=== PATIENT | female | born 1985 | race Two or more races ===

== ENCOUNTER 2024-07-02 08:00 | Outpatient (RCR) | payer MEDICAID, SELFPAY ==
--- NOTE | 2024-06-04 15:55 | PT.OIERPT ---
PT OP Initial Eval Patient Information Outpatient Physical Therapy Treatment Date: 06/04/24 Visit Reasons: left wrist pain Medical Diagnosis: M65.4; Left Wrist Pain Treatment Dx #1: Left Hand Pain Treatment Dx #2: Left Hand Weakness Start of Care: 06/04/24 Date of Onset: 1 year ago Smoking Status Smoking Status: Never smoker Initial Assessment Subjective: Pt is a 39 y/o female reports of chronic left wrist pain (10/11) after she fell on it ~ 1 year ago. Xray negative no MRI has been done. Pt has limitation with gripping, lifting, chores, self care, cooking, cleaning, and work duties. 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 Objective: Left Wrist AROM: all motions are WNL except pain with ulnar deviation Left Wrist MMTs: grossly 3+/5 Inspector Clip On Sunglasses Strength L: 43 lbs R: 60 lbs Wright Pinch L: 11 lbs R: 14 lbs Special Test (+) ena Palpation: TTP abductor pollicis longus and extensor pollicis brevis tendons Assessment: Pt demonstrate left wrist pain and weakness consistent with dequervain tenosynovitis leading to difficulty with ADLs. 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
--- NOTE | 2024-06-11 15:36 | PT.ODAYNRPT ---
PT Outpatient Daily Note OP Daily Note Outpatient Physical Therapy Treatment Date: 06/11/24 Visit Reasons: left wrist pain Subjective: Pt reports L wrist and thumb pain. Objective: Please see flow sheet for ther ex list. Assessment: Interventions completed with minimal pain and TTP. Plan: Please see flow sheet for ther ex list. Length of Time (minutes) of Treatment: 30 Minutes Procedure Charges Therapeutic Exercise 30 minutes: Yes
--- NOTE | 2024-06-13 15:41 | PT.ODAYNRPT ---
PT Outpatient Daily Note OP Daily Note Outpatient Physical Therapy Treatment Date: 06/13/24 Visit Reasons: left wrist pain Subjective: Pt's thumb been feeling better. Pt does not have any concerns to report. Objective: Please see flow chart for list of ther ex performed Assessment: STM decrease thumb pain. Pt progressing with resistance. Plan: Continue with PT Length of Time (minutes) of Treatment: 30 Minutes Procedure Charges Therapeutic Exercise 30 minutes: Yes
--- NOTE | 2024-06-18 15:51 | PT.ODAYNRPT ---
PT Outpatient Daily Note OP Daily Note Outpatient Physical Therapy Treatment Date: 06/18/24 Visit Reasons: left wrist pain Subjective: Pt's hand and thumb is better no concerns to report. Pt continues to use the thumb for work. Objective: Please see flow chart for list of ther ex performed Assessment: decrease pain and able to tolerate increase in reps with all exercises Plan: Continue with PT Length of Time (minutes) of Treatment: 30 Minutes Procedure Charges Therapeutic Exercise 30 minutes: Yes
--- NOTE | 2024-06-21 16:08 | PT.ODAYNRPT ---
PT Outpatient Daily Note OP Daily Note Outpatient Physical Therapy Treatment Date: 06/21/24 Visit Reasons: left wrist pain Subjective: Pt reports L wrist is doing better, notices it is less sensitive and pain has reduced. Objective: Please see flow sheet for ther ex list. Assessment: Decrease c/o pain with interventions assigned indicating progress. Plan: Continue with POC. Length of Time (minutes) of Treatment: 30 Minutes Procedure Charges Therapeutic Exercise 30 minutes: Yes
--- NOTE | 2024-06-26 08:57 | PTNOTE_ITS ---
PT Outpatient Daily Note OP Daily Note Outpatient Physical Therapy Treatment Date: 06/26/24 Visit Reasons: left wrist pain Subjective: Pt's thumb and hand is better. Pt continues to work. 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 Plan: Continue with PT Length of Time (minutes) of Treatment: 30 Minutes Procedure Charges Therapeutic Exercise 30 minutes: Yes
--- NOTE | 2024-06-29 09:00 | PT.ODAYNRPT ---
PT Outpatient Daily Note OP Daily Note Outpatient Physical Therapy Treatment Date: 06/29/24 Visit Reasons: left wrist pain Subjective: Pt's hand and thumb feels better. No new concerns to report. Objective: Please see flow chart for list of ther ex performed Assessment: progressing with hand resistance exercises with less pain reported Plan: Continue with PT Length of Time (minutes) of Treatment: 30 Minutes Procedure Charges Therapeutic Exercise 30 minutes: Yes
--- NOTE | 2024-07-02 08:57 | PT.ODAYNRPT ---
PT Outpatient Daily Note OP Daily Note Outpatient Physical Therapy Treatment Date: 07/02/24 Visit Reasons: left wrist pain Subjective: Pt does not have any new concerns. 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 Objective: Please see flow chart for list of ther ex performed Assessment: tolerate exercises with minimal pain Plan: Continue with PT Length of Time (minutes) of Treatment: 30 Minutes Procedure Charges Therapeutic Exercise 30 minutes: Yes
== END 2024-07-03 23:59 | disposition home or self-care (01) ==
LOC: CPTX 08:00
DX: M25.532 Pain in left wrist (principal); M79.642 Pain in left hand; R53.1 Weakness; G89.29 Other chronic pain
CPT/HCPCS: 97110; 97162

== ENCOUNTER 2024-07-16 15:30 | Outpatient (RCR) | payer MEDICAID, SELFPAY ==
--- NOTE | 2024-07-06 15:27 | PT.ODAYNRPT ---
PT Outpatient Daily Note OP Daily Note Outpatient Physical Therapy Treatment Date: 07/06/24 Visit Reasons: Left wrist pain Subjective: Pt's hand and thumb is better. Pt continues to with less limitation. Objective: Please see flow chart for list of ther ex performed Assessment: progressing with hand exercises with less pain reported. Plan: Continue with PT Length of Time (minutes) of Treatment: 30 Minutes Procedure Charges Therapeutic Exercise 30 minutes: Yes
--- NOTE | 2024-07-10 15:29 | PT.ODAYNRPT ---
PT Outpatient Daily Note OP Daily Note Outpatient Physical Therapy Treatment Date: 07/10/24 Visit Reasons: Left wrist pain Subjective: Pt's hand is better and notice improved strength. Pt denies of minimal limitation with work. 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
--- NOTE | 2024-07-12 15:57 | PT.ODAYNRPT ---
PT Outpatient Daily Note OP Daily Note Outpatient Physical Therapy Treatment Date: 07/12/24 Visit Reasons: Left wrist pain Subjective: Pt reports L wrist is doing a lot better. Pt denies difficulty or pain with performance of ADLs. Objective: Please see flow sheet for the claude list. Assessment: Pt demonstrates good tolerance with functional strengthening in clinic. Plan: Pt has one visit remaining. Length of Time (minutes) of Treatment: 30 Minutes Procedure Charges Therapeutic Exercise 30 minutes: Yes
--- NOTE | 2024-07-16 15:53 | PTNOTE_ITS ---
PT OP Progress/Discharge Note Date of Service: 07/16/24 Progress Note/DC Note Progress Note/Discharge Note: DC Note Patient Information Visit Reasons: Left wrist pain Medical Diagnosis: M65.4 Treatment Dx #1: Left Hand Pain Service Continue Service or Discharge: Discharge Discharge Date: 07/16/24 Status Subjective: Pt's thumb is better and denies of hand pain. Pt has been able to resume ADLs, chores, self care, cooking, and work duties. 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 Pt has met all set goals in therapy and will no longer benefit from physical therapy. Pt was instructed on HEP last session and educated to continue exercises to maintain overall mobility. Pt performed all exercises safely, thank you for your referrals. Plan: D/C home with HEP and follow up with MD AVILA Procedure Charges Therapeutic Exercise 30 minutes: Yes
== END 2024-08-03 23:59 | disposition home or self-care (01) ==
LOC: CPTX 15:30
DX: M79.642 Pain in left hand (principal); M25.532 Pain in left wrist; R53.1 Weakness; S69.92XD Unspecified injury of left wrist, hand and finger(s), subsequent encounter; W19.XXXD Unspecified fall, subsequent encounter; M65.4 Radial styloid tenosynovitis [de Quervain]
CPT/HCPCS: 97110

== ENCOUNTER → 2024-08-14 | Outpatient (CLI) | payer MEDICAID, SELFPAY ==
--- NOTE | 2024-08-14 15:37 | XR_ITS ---
Examination: Thoracic spine 3 views Technique one AP lateral coned lateral upper dorsal spine 3 views Exam date and time: August 14, 2024 at 1623 hrs. Indications: Upper back pain beginning one year ago Findings: Mild osteopenia Thoracic dextroscoliosis 8 degrees No thoracic fracture Minimal thoracic abscess No significant arthritic change Impression: No fracture Minimal thoracic spondylosis
== END | disposition home or self-care (01) ==
LOC: CDIM 15:26
PROVIDERS: Referring Provider Physician Assistant; Visit Provider Physician Assistant
DX: M47.814 Spondylosis without myelopathy or radiculopathy, thoracic region (principal)
CPT/HCPCS: 72072

== ENCOUNTER → 2024-09-05 | Outpatient (CLI) | payer MEDICAID, SELFPAY ==
--- NOTE | 2024-09-05 15:41 | XR_ITS ---
Examination: Lumbar spine 3 views Technique one AP lateral coned lateral lower lumbar spine 3 views Exam date and time: September 05, 2024 at 1600 hours INDICATIONS: Low back pain beginning one year ago radiating down both legs. FINDINGS: Satisfactory alignment lumbar vertebral bodies. No lumbar fracture Mild disc narrowing L5-S1 IMPRESSION: Mild disc narrowing L5-S1
== END | disposition home or self-care (01) ==
PROVIDERS: PCP Student in an Organized Health Care Education/Training Program; Referring Provider Student in an Organized Health Care Education/Training Program; Visit Provider Student in an Organized Health Care Education/Training Program
DX: M48.07 Spinal stenosis, lumbosacral region (principal)
CPT/HCPCS: 72100

== ENCOUNTER 2025-04-30 15:11 | Emergency (ER) | payer MEDICAID, SELFPAY ==
[2025-04-30 15:25] VITALS: BP 130/79; PULSE 66; RESP 16; TEMP 36.8; O2SAT 99; BMI 36.9
--- NOTE | 2025-04-30 15:40 | XR_ITS ---
Examination: Complete OB ultrasound, less than 14 weeks, transabdominal Date and time of exam: April 30, 2025, 1543 hours INDICATIONS: Onset vaginal bleeding beginning 1 week ago Technique: Obstetrical ultrasound images less than 14 weeks performed via transabdominal imaging Findings: Uterus 9.2 cm gestational sac 3.1 cm corresponds to 8 weeks 2 days gestational age No pole, no cardiac activity Ovaries obscured by bowel gas IMPRESSION: Findings most consistent with embryonic demise, consider short-term follow-up transvaginal pelvic sonography
[2025-04-30 16:38] LABS: Collection Type, Urine Clean Catch
[2025-04-30 16:38] LABS: Basophils # (Auto) 0.0 Thou/mm3 (0.0-0.2); Basophils % (Auto) 0 % (0-2.5); Eosinophils # (Auto) 0.1 Thou/mm3 (0.0-0.5); Eosinophils % (Auto) 1 % (0-10); Hematocrit 46.1 % (36.0-46.0); Hemoglobin 15.4 g/dL (12.0-16.0); Immature Granulocytes Auto 0.01 Thou/mm3 (0.00-0.00); Lymphocytes # (Auto) 3.2 Thou/mm3 (1.0-4.8); Lymphocytes % (Auto) 39 % (10-50); Mean Corpuscular HGB Conc 33.4 g/dl (31.0-37.0); Mean Corpuscular Hemoglobin 28.1 pg (25.0-35.0); Mean Corpuscular Volume 84 fL (80-100); Monocytes # (Auto) 0.3 Thou/mm3 (0.0-0.8); Monocytes % (Auto) 3 % (0-12); Neutrophils # (Auto) 4.6 Thou/mm3 (1.8-7.7); Neutrophils % (Auto) 56 % (37-80); Nucleated Red Blood Cell # 0.00 Thou/mm3 (0.00-0.00); Nucleated Red Blood Cell % 0 /100 WBC (0); Platelet Count 216 Thou/mm3 (140-440); RDW Standard Deviation 40.4 fL (36.4-46.3); Red Blood Count 5.49 Miln/mm3 (4.00-5.20); White Blood Count 8.1 Thou/mm3 (3.6-11.0)
--- NOTE | 2025-04-30 16:47 | PD.EDRME ---
Rapid Medical Screening Exam [facility] Arrival date/time: 04/30/25 15:11 40-year-old female with no known medical history presents to the emergency room with a chief complaint of vaginal spotting. Patient states the first episode of vaginal spotting was a week ago which stopped and then today she began having it once again. Patient is a G6, P5. I have greeted and performed a focused initial assessment of this patient. A comprehensive ED assessment and evaluation of the patient, analysis of all test results, and completion of the medical decision making process will be conducted by additional ED providers. Chief Complaint: Vaginal Bleeding Time Seen by Provider: 04/30/25 15:20 Vital signs: Vital Signs Temperature 98.3 F 04/30/25 15:25 Pulse Rate 66 04/30/25 15:25 Respiratory Rate 16 04/30/25 15:25 Blood Pressure 130/79 04/30/25 15:25 Pulse Oximetry (%) 99 04/30/25 15:25 Oxygen Delivery Method Room Air 04/30/25 15:25 Vital signs reviewed by provider: Yes Exam: Patient has a soft nontender abdomen Clear bilateral lung sounds Clinical Impression: Threatened /vaginal bleeding/subchorionic hemorrhage/spontaneous
[2025-04-30 17:00] LABS: Bilirubin,Urine Negative (Negative); Blood,Urine 2+ (Negative); Clarity,Urine Clear (Clear/Hazy); Color,Urine Lt-Yellow (Lt Yel-Yel); Glucose, Urine 4+ (Negative); Ketones,Urine 1+ (Negative); Leukocyte Esterase,Urine Negative (Negative); Nitrite,Urine Negative (Negative); PH,Urine 6.0 (5.0-7.0); Protein,Urine Negative (Neg - Trace); RBC,Urine 6 /hpf (0-3); Specific Gravity,Urine 1.029 (1.001-1.035); Squamous Epithelial Cell,Urine 1 /hpf (0-5); Urobilinogen,Urine Negative mg/dL (0.0-1.0); WBC,Urine 2 /hpf (0-5)
[2025-04-30 17:03] LABS: Alanine Aminotransferase 24 U/L (10-49); Albumin, Serum 5.0 gm/dL (3.5-5.0); Albumin/Globulin Ratio 2.6 (1.2-2.2); Alkaline Phosphatase 99 U/L (46-116); Anion Gap 12 (7-16); Aspartate Amino Transferase 20 U/L (0-34); BUN/Creatinine Ratio 10 Ratio (12-20); Bilirubin,Total 1.1 mg/dL (0.3-1.2); Blood Urea Nitrogen 8 mg/dL (9-23); Calcium 9.8 mg/dL (8.3-10.6); Calcium (Corrected) 9.8 mg/dL (8.5-10.1); Carbon Dioxide 23.6 mMol/L (20.0-31.0); Chloride 103 mMol/L (98-107); Creatinine (Component) 0.8 mg/dL (0.6-1.3); Estimated Creatinine Clearance 87.2 mL/min (>60); Globulin 1.9 gm/dL (2.3-3.5); Glucose 274 mg/dL (74-106); Osmolality,Calculated 285 (275-295); Potassium 4.1 mMol/L (3.4-5.1); Sodium 139 mMol/L (136-145); Total Protein 6.9 gm/dL (5.7-8.2); eGFR > 60 See Note
[2025-04-30 17:17] LABS: Beta HCG,Quantitative 4728 mIU/mL (<5.0)
--- NOTE | 2025-04-30 19:36 | PD.EDADULT ---
ED General RME/HPI General Chief complaint: Vaginal Bleeding Stated complaint: VAGINAL SPOTTING; PREG 8WKS? 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 Patient denies fever chills chest pain shortness of breath or difficulty breathing. RME / HPI RME / HPI narrative: 04/30/25 15:11 40-year-old female with no known medical history presents to the emergency room with a chief complaint of vaginal spotting. Patient states the first episode of vaginal spotting was a week ago which stopped and then today she began having it once again. Patient is a G6, P5. I have greeted and performed a focused initial assessment of this patient. A comprehensive ED assessment and evaluation of the patient, analysis of all test results, and completion of the medical decision making process will be conducted by additional ED providers. Exam: Patient has a soft nontender abdomen Clear bilateral lung sounds Impression: Threatened /vaginal bleeding/subchorionic hemorrhage/spontaneous Related Data Home Medications ?Medication ?Instructions ?Recorded ?Confirmed vits no.124-ferrous fum 1 tab PO QDAY 09/15/23 09/15/23 27 mg iron-folic acid 800 mcg tablet ( Vitamin) Previous Rx's ?Medication ?Instructions ?Recorded hydrocodone 5 mg-acetaminophen 325 1 tab PO Q6H PRN pain #20 tabs 09/18/23 mg tablet empagliflozin 10 mg tablet 10 mg PO QDAY #30 tabs 09/20/23 (Jardiance) metformin 500 mg tablet 750 mg (1.5 x 500 mg) PO HS #30 09/20/23 tabs semaglutide 3 mg tablet (Rybelsus) 3 mg PO QDAY 30 days #30 tabs 09/20/23 Allergies Allergy/AdvReac Type Severity Reaction Status Date / Time No Known Allergies Allergy Verified 04/30/25 15:13 Review of Systems Review of Systems Narrative Review of Systems: GEN: No fever, no chills, no weight loss EYES: No discharge, no visual changes, no pain HEENT: No ear pain, no congestion, no sore throat PULM: No shortness of breath, no cough, no congestion CV: No chest pain, no dyspnea on exertion, no palpitations GI: No nausea, no vomiting, no diarrhea, no pain, no constipation : No frequency, no urgency, no dysuria MUSC/SKEL: No joint pain, no back pain SKIN: No rash PSYCH: No hallucinations, no depression HEME/LYMPH: No easy bleeding or bruising tendencies NEURO: No weakness, no headache Past Medical History Past Medical History NEUROLOGIC: Negative Neurological Disorders or Seizures CARDIAC: Negative Cardiac Disorders or Congestive Heart Failure RESPIRATORY: Negative Chronic Obstructive Pulmonary Disease (COPD) GASTROINTESTINAL: Negative Gastrointestinal Disorders or Hepatitis GENITOURINARY: Negative Genitourinary Disorders or Renal Disease REPRODUCTIVE: Positive Previous Pregnancies (X4); Negative Endometriosis, Pelvic Inflammatory Disease, Syphilis or Uterine Prolapse MUSCULOSKELETAL: Negative Musculoskeletal Disorders ENDOCRINE: Positive Endocrine Disorders; Negative Diabetes Mellitus Type 1 or Diabetes Mellitus Type 2 HEMATOLOGIC: Negative Blood Disorders OTHER HISTORY: Positive Chicken Pox; Negative Hospitalization, Autoimmune Disease, Shingles, Falls, Blood Transfusions, Blood Transfusion Reaction, Anesthesia Reactions, Organ Transplant, Chemotherapy, Radiation Therapy, MRSA, Measles, Mumps or Cancer Family History FAMILY HISTORY: Positive Family Surgery (MOTHER,BROTHER); Negative Family Psychiatric Problems, Family Respiratory Disorders, Family Cardiac Disorders, Family Gastrointestinal Problems, Family Cancer or Family Anesthesia Reaction Surgical History SURGICAL: Negative Cardiac Surgery, Endocrine Surgery, Ear Surgery, Abdominal Surgery, Nephrectomy, Joint Replacement, Neurologic Surgery, Mastectomy, Vasectomy or Organ Transplant Social History SMOKING STATUS: Never smoker ED Exam Narrative Physical exam: [General: Not in any acute distress Head normocephalic HEENT: Within acceptable limits Neck is supple nontender Chest equal chest rise nontender to palpation Respiratory: Clear to auscultation no wheezes crackles or rubs CV: Rate rhythm is regular no murmurs rubs or clicks Abdomen is soft nontender no masses positive bowel sounds all 4 quadrants Back: No CVA tenderness no spinous process tenderness from cervical spine thoracic and lumbar spine Skin: Intact no petechiae rash induration ulceration or crepitus Extremities: Moving all extremity against resistance cap refill less than 2 seconds neurosensory intact Neuro: Awake alert oriented x3 Glascow coma 15 no focal deficits] Course Course Course Narrative: Summative demise Quality Measures none Orders Category Date Time Status US OB <= 14 weeks fetus Stat Exams 04/30/25 15:40 Completed Beta HCG,Quantitative Stat Lab 04/30/25 16:02 Completed CBC Stat Lab 04/30/25 16:02 Completed CMP [Comprehensive Metabolic Panel] Stat Lab 04/30/25 16:02 Completed RHOGAM [Rho(D) Immune Globulin] Stat Lab 04/30/25 16:02 Results Type and Screen Stat Lab 04/30/25 16:02 Results UA [Urinalysis] Stat Lab 04/30/25 16:20 Completed Vital Signs Vital signs: Vital Signs Temperature 98.3 F 04/30/25 15:25 Pulse Rate 66 04/30/25 15:25 Respiratory Rate 16 04/30/25 15:25 Blood Pressure 130/79 04/30/25 15:25 Pulse Oximetry (%) 99 04/30/25 15:25 Oxygen Delivery Method Room Air 04/30/25 15:25 Discharge Plan Plan Patient Disposition: HOME (Self Care) Patient condition on transfer: Stable Prescriptions/Referrals Prescriptions/Med Rec: No Action Vitamin 27 mg iron- 800 mcg Tablet 1 tab PO QDAY hydrocodone-acetaminophen 5-325 mg tablet 1 tab PO Q6H MDD 4 PRN (Reason: pain) Qty: 20 0RF metformin 500 mg Tablet 750 mg PO HS Qty: 30 2RF Rybelsus 3 mg tablet 3 mg PO QDAY 30 Days Qty: 30 2RF Jardiance 10 mg tablet 10 mg PO QDAY Qty: 30 2RF Referrals: Everett Candelaria PA-C [Primary Care Provider, Emergency Medicine] - In 1 week Problem List Clinical Impression: demise Patient/Caregiver Discharge Instructions Other Activity Instructions:: Quantitative hCG of 4 728. Follow-up with your primary care doctor or [facility] RO[facility] for repeat ultrasound and quantitative hCG in the next 4 to 5 days. If there is heavy bleeding or cramping with large clots return to the emergency room for reevaluation. Education Materials: ED Miscarriage, Incomplete Print Language: Lebanese Stand Alone Forms: Yaneth Award Info., Work/School Release, Patient Portal Info Letter JUSTINA/KESHAV Supervising Physician CATHERINE Supervising Physician: Surinder Rock ENP [facility] Clinical Information Provided by: patient Medical Records reviewed [facility] Meds/Rx considered, not ordered None Labs/Rad/Tests considered, not ordered None Chronic Illness/Social Conditions which may negatively complicate care or outcome(s)-explain: None or not applicable Explain: G6, P5 EKG EKG not done Labs Labs: interpreted by me Lab(s) Interpretation(s): CBC shows no leukocytosis no anemia thrombocytopenia CMP shows glucose of 274 no other electrolyte imbalances renal impairment transaminitis or T. bili elevation. Urine shows 4+ glucose 1+ ketones 2+ blood 6 RBCs no bacteria. ABO Rh is O-. Quantitative hCG at 4728 Imaging Imaging interpretation: interpreted by me Imaging Interpretation(s): Ultrasound shows gestational sac equivalent to 8 weeks and 2 days with no cardiac activity or pole. Indicated demise. Medication Administration(s) none Diagnosis Differential Diagnosis ED Complaint MDM: Ectopic, IUP, miscarriage
[2025-04-30 20:08] VITALS: BP 125/85; PULSE 78; RESP 18; TEMP 37.2
[2025-04-30 20:25] VITALS: BP 108/72; PULSE 74; RESP 16; TEMP 37.2; O2SAT 98
== END 2025-04-30 20:29 | disposition home or self-care (01) ==
PROVIDERS: Nurse Practitioner Family; Emergency Provider Family Medicine; PCP Physician Assistant
DX: O03.4 Incomplete spontaneous abortion without complication (principal)
CPT/HCPCS: 36415; 76801; 80053; 81001; 84702; 85025; 86850; 86900; 86901; 99282; J2790

== ENCOUNTER 2025-05-03 18:41 | Inpatient (IN) | payer MEDICAID, SELFPAY ==
[2025-05-03 18:47] VITALS: BP 124/78; PULSE 75; RESP 18; TEMP 37.1; O2SAT 97
[2025-05-03 19:06] VITALS: BMI 36.9
--- NOTE | 2025-05-03 19:19 | XR_ITS ---
Examination: Transvaginal ultrasound of the pelvis, complete Technique: Transvaginal sonographic images pelvis performed using yanez scale imaging Exam date and time: May 03, 2025, 0757 hours INDICATIONS: Onset vaginal bleeding and pelvic cramping today FINDINGS: Uterus 9.8 cm no uterine mass or intrauterine gestation Endometrial stripe 2.7 cm Right ovary 2.3 cm arterial flow Left ovary 2.7 cm arterial flow No fluid in the cul-de-sac IMPRESSION: No uterine mass or intrauterine gestation.
[2025-05-03 19:55] LABS: Collection Type, Urine Voided
[2025-05-03 20:00] LABS: Basophils # (Auto) 0.0 Thou/mm3 (0.0-0.2); Basophils % (Auto) 0 % (0-2.5); Eosinophils # (Auto) 0.1 Thou/mm3 (0.0-0.5); Eosinophils % (Auto) 1 % (0-10); Hematocrit 46.5 % (36.0-46.0); Hemoglobin 15.7 g/dL (12.0-16.0); Immature Granulocytes Auto 0.02 Thou/mm3 (0.00-0.00); Lymphocytes # (Auto) 3.7 Thou/mm3 (1.0-4.8); Lymphocytes % (Auto) 38 % (10-50); Mean Corpuscular HGB Conc 33.8 g/dl (31.0-37.0); Mean Corpuscular Hemoglobin 28.0 pg (25.0-35.0); Mean Corpuscular Volume 83 fL (80-100); Monocytes # (Auto) 0.4 Thou/mm3 (0.0-0.8); Monocytes % (Auto) 4 % (0-12); Neutrophils # (Auto) 5.6 Thou/mm3 (1.8-7.7); Neutrophils % (Auto) 57 % (37-80); Nucleated Red Blood Cell # 0.00 Thou/mm3 (0.00-0.00); Nucleated Red Blood Cell % 0 /100 WBC (0); Platelet Count 218 Thou/mm3 (140-440); RDW Standard Deviation 38.9 fL (36.4-46.3); Red Blood Count 5.60 Miln/mm3 (4.00-5.20); White Blood Count 9.9 Thou/mm3 (3.6-11.0)
[2025-05-03 20:08] LABS: Bilirubin,Urine Negative (Negative); Blood,Urine 3+ (Negative); Clarity,Urine Turbid (Clear/Hazy); Color,Urine Brown (Lt Yel-Yel); Glucose, Urine 4+ (Negative); Ketones,Urine 1+ (Negative); Leukocyte Esterase,Urine Positive (Negative); Nitrite,Urine Negative (Negative); PH,Urine 6.0 (5.0-7.0); Protein,Urine 1+ (Neg - Trace); RBC,Urine 4513 /hpf (0-3); Specific Gravity,Urine 1.043 (1.001-1.035); Squamous Epithelial Cell,Urine 2 /hpf (0-5); Urobilinogen,Urine 2.0 mg/dL (0.0-1.0); WBC,Urine 48 /hpf (0-5)
[2025-05-03 20:42] LABS: Alanine Aminotransferase 25 U/L (10-49); Albumin, Serum 4.8 gm/dL (3.5-5.0); Albumin/Globulin Ratio 2.3 (1.2-2.2); Alkaline Phosphatase 97 U/L (46-116); Anion Gap 10 (7-16); Aspartate Amino Transferase 20 U/L (0-34); BUN/Creatinine Ratio 11 Ratio (12-20); Beta HCG,Quantitative 1820 mIU/mL (<5.0); Bilirubin,Total 0.8 mg/dL (0.3-1.2); Blood Urea Nitrogen 10 mg/dL (9-23); Calcium 10.2 mg/dL (8.3-10.6); Calcium (Corrected) 10.2 mg/dL (8.5-10.1); Carbon Dioxide 22.8 mMol/L (20.0-31.0); Chloride 105 mMol/L (98-107); Creatinine (Component) 0.9 mg/dL (0.6-1.3); Estimated Creatinine Clearance 77.6 mL/min (>60); Globulin 2.1 gm/dL (2.3-3.5); Glucose 305 mg/dL (74-106); Osmolality,Calculated 285 (275-295); Potassium 3.8 mMol/L (3.4-5.1); Sodium 138 mMol/L (136-145); Total Protein 6.9 gm/dL (5.7-8.2); eGFR > 60 See Note
--- NOTE | 2025-05-03 21:07 | EDNOTE_ITS ---
ED OB Contraction Preg RMI/HPI General Chief complaint: Vaginal Bleeding Stated complaint: 11 weeks OB, vaginal bleeding Time Seen by Provider: 05/03/25 19:05 Arrival date/time: 05/03/25 18:41 This is a case of 40-year-old female with no medical history came in in the emergency room due to vaginal bleeding with blood clots today patient is 11 weeks 6 para 5 patient was here April 30, 2025 where the whole workup was performed patient hCG at that time was 4718 and pelvic ultrasound showed demise patient states that he supposed to have DNC on Tuesday but due to worsening of vaginal bleeding thus patient decided to sought consult here in the emergency room Limitations: no limitations Related Data Home Medications ?Medication ?Instructions ?Recorded ?Confirmed vits no.124-ferrous fum 1 tab PO QDAY 4 09/15/23 27 mg iron-folic acid 800 mcg tablet ( Vitamin) Previous Rx's ?Medication ?Instructions ?Recorded hydrocodone 5 mg-acetaminophen 325 1 tab PO Q6H PRN pa in #20 tabs 09/18/23 mg tablet empagliflozin 10 mg tablet 10 mg PO QDAY #30 tabs 09/01 03/27 (Jardiance) metformin 500 mg tablet 750 mg (1.5 x 500 mg) PO HS #30 09/20/23 tabs semaglutide 3 mg tablet (Rybelsus) 3 mg PO QDAY 30 day s #30 tabs 09/20/23 Allergies Allergy/AdvReac Type Severity Reaction Status Date / Time No Known Allergies Allergy Verified 05/03/25 18:46 Review of Systems Review of Systems Systems Reviewed: All systems reviewed, normal except as documented Constitutional Constitutional: Reports system reviewed and no additional complaints, except as documented and Reports as per HPI Eyes Eyes: Reports system reviewed and no additional complaints, except as documented and Reports as per HPI Cardiovascular Cardiovascular: Reports system reviewed and no additional complaints, except as documented and Reports as per HPI Respiratory Respiratory: Reports system reviewed and no additional complaints, except as documented and Reports as per HPI Gastrointestinal Gastrointestinal: Reports system reviewed and no additional complaints, except as documented, Reports as per HPI and Denies abdominal pain Genitourinary Genitourinary: Reports system reviewed and no additional complaints, except as documented, Reports as per HPI and Reports abnormal vaginal bleeding Neurologic Neurologic: Reports system reviewed and no additional complaints, except as documented and Reports as per HPI Past Medical History Past Medical History NEUROLOGIC: Negative Neurological Disorders or Seizures CARDIAC: Negative Cardiac Disorders or Congestive Heart Failure RESPIRATORY: Negative Chronic Obstructive Pulmonary Disease (COPD) GASTROINTESTINAL: Negative Gastrointestinal Disorders or Hepatitis GENITOURINARY: Negative Genitourinary Disorders or Renal Disease REPRODUCTIVE: Positive Previous Pregnancies (X4); Negative Endometriosis, Pelvic Inflammatory Disease, Syphilis or Uterine Prolapse MUSCULOSKELETAL: Negative Musculoskeletal Disorders ENDOCRINE: Positive Endocrine Disorders; Negative Diabetes Mellitus Type 1 or Diabetes Mellitus Type 2 HEMATOLOGIC: Negative Blood Disorders OTHER HISTORY: Positive Chicken Pox; Negative Hospitalization, Autoimmune Disease, Shingles, Falls, Blood Transfusions, Blood Transfusion Reaction, Anesthesia Reactions, Organ Transplant, Chemotherapy, Radiation Therapy, MRSA, Measles, Mumps or Cancer Family History FAMILY HISTORY: Positive Family Surgery (MOTHER,BROTHER); Negative Family Psychiatric Problems, Family Respiratory Disorders, Family Cardiac Disorders, Family Gastrointestinal Problems, Family Cancer or Family Anesthesia Reaction Surgical History SURGICAL: Negative Cardiac Surgery, Endocrine Surgery, Ear Surgery, Abdominal Surgery, Nephrectomy, Joint Replacement, Neurologic Surgery, Mastectomy, Vasectomy or Organ Transplant Social History SMOKING STATUS: Never smoker ED Exam General Limitations: Present no limitations General appearance: Present alert, in no apparent distress and other (Patient is awake alert oriented not in distress nontoxic looking well-hydrated well- nourished) Head Head exam: Present atraumatic, normocephalic and normal inspection Eye Eye exam: Present normal appearance, PERRL and EOMI ENT ENT exam: Present normal exam, normal oropharynx and mucous membranes moist Neck Neck exam: Present normal inspection, full ROM and trachea midline; Absent tenderness, meningismus, lymphadenopathy or thyromegaly Chest Chest inspection: Present normal inspection and symmetric chest wall rise; Absent tenderness Respiratory Respiratory exam: Present normal lung sounds bilaterally; Absent respiratory distress, wheezes, stridor, accessory muscle use or prolonged expiratory phase Cardiovascular Cardiovascular exam: Present regular rate, normal rhythm and normal heart sounds; Absent bradycardia, tachycardia, irregular rhythm, systolic murmur or diastolic murmur Abdominal Exam Abdominal exam: Present soft and normal bowel sounds; Absent distention, tenderness, guarding, rebound, rigidity, diminished bowel sounds, hyperactive bowel sounds, hypoactive bowel sounds or organomegaly Extremities Exam Extremities exam: Present normal inspection and full ROM Back Exam Back exam: Present normal inspection and full ROM Neurological Exam Neurological exam: Present alert, oriented X3, CN II-XII intact, normal gait and reflexes normal; Absent motor sensory deficit Psychiatric Psychiatric exam: Present normal affect and normal mood Skin Skin exam: Present warm, dry, intact and normal color Course Quality Measures none Orders Category Date Time Status US transvaginal Stat Exams 05/03/25 19:19 Completed ABO/RH Type Stat Lab 05/03/25 19:32 Completed Beta HCG,Quantitative Stat Lab 05/03/25 19:32 Completed CBC Stat Lab 05/03/25 19:32 Completed CMP [Comprehensive Metabolic Panel] Stat Lab 05/03/25 19:32 Completed Urinalysis Stat Lab 05/03/25 19:45 Completed Vital Signs Vital signs: Vital Signs Temperature 98.7 F 05/03/25 18:47 Pulse Rate 75 05/03/25 18:47 Respiratory Rate 18 05/03/25 18:47 Blood Pressure 124/78 05/03/25 18:47 Pulse Oximetry (%) 97 05/03/25 18:47 Oxygen Delivery Method Room Air 05/03/25 18:47 Patient oxygen saturation is 97% in room air normal Vaginal Bleeding MDM Narrative MDM Narrative: This is a case of 40-year-old female with no medical history came in in the emergency room due to vaginal bleeding with blood clots today patient is 11 weeks 6 para 5 patient was here April 30, 2025 where the whole workup was performed patient hCG at that time was 4718 and pelvic ultrasound showed demise patient states that he supposed to have DNC on Tuesday but due to worsening of vaginal bleeding thus patient decided to sought consult here in the emergency room physical examination patient is awake alert oriented not in distress nontoxic looking well-hydrated well not in distress nontoxic looking abdominal exam is benign nonsurgical no guarding no rebound no rigidity no tenderness the rest of the physical examination and neurological exam is normal and unremarkable patient blood test showed no leukocytosis no anemia kidney and liver function is normal no electrolyte imbalance patient beta-hCG went down from [id number] patient urinalysis showed WBC and urine suggestive of urinary tract infection pelvic ultrasound showed no intrauterine I spoke to Dr. Daly discussed patient condition history and physical examination relayed the result of blood test and pelvic ultrasound patient was admitted by him ordered was given also by the OB discussed with the patient the treatment plan and admission and agreed Patient data External records reviewed:: [facility] previous records Clinical information provided by:: patient Social determinants that could affect healthcare access:: none Patient has the following chronic illnesses:: None How is presenting disease/condition affected by chronic disease/condition?: no chronic disease Evaluation data The following diagnostics were reviewed and interpreted by me:: lab results and radiology exam(s) Lab and/or radiology exams considered but not ordered:: Reviewed Interpretation Summary: Reviewed Medications / Prescriptions Medications or Prescriptions considered but not ordered:: Given Medication administrations:: Given Consultations Consultation(s) initiated? (list below): Yes Consultation #1 (Physician, Specialty, Details): Dr antonio discussed patient condition history and physical examination relayed the result of the blood test and imaging ordered to admit patient for further evaluation Diagnosis Vaginal Bleeding Differential Diagnosis: missed , threatened , dysfunctional uterine bleeding, incomplete and vaginal bleeding Most likely diagnosis given after review of the tests above:: Miscarriage Admission Indicated Admission indicated?: indicated Explain why admission is indicated or not indicated:: Miscarriage Admission Request Was there a request for admission?: Yes Admission Attestation Admission request attestation: Discussed case with [] from Hospitalist service regarding admission. Discussed patients ED course, exam findings, labs, and radiology results. The Hospitalist [agrees,declines] to accept the patient for admission. Disposition Plan Disposition Plan: Admit Discharge Plan Plan Patient Disposition: Admit Acute Care w/in Hospital Patient condition on transfer: Stable Prescriptions/Referrals Prescriptions/Med Rec: No Action Vitamin 27 mg iron- 800 mcg Tablet 1 tab PO QDAY hydrocodone-acetaminophen 5-325 mg tablet 1 tab PO Q6H MDD 4 PRN (Reason: pain) Qty: 20 0RF metformin 500 mg Tablet 750 mg PO HS Qty: 30 2RF Rybelsus 3 mg tablet 3 mg PO QDAY 30 Days Qty: 30 2RF Jardiance 10 mg tablet 10 mg PO QDAY Qty: 30 2RF Referrals: Everett Candelaria PA-C [Primary Care Provider, Emergency Medicine] - In 1 week Problem List Clinical Impression: Miscarriage, Urinary tract infection Patient/Caregiver Discharge Instructions Education Materials: Urinary Tract Infections in Women, Understanding Miscarriage ... Print Language: Yoruba Stand Alone Forms: Yaneth Award Info., Patient Portal Info Letter PA/INBOUND INGREDIENT LOGISTICS SPECIALIST Supervising Physician PA/INBOUND INGREDIENT LOGISTICS SPECIALIST Supervising Physician: Dr. Valencia
--- NOTE | 2025-05-03 22:32 | ESHP_ITS ---
RE: BOBBY BARTHOLOMEW : 1985 DATE OF ADMISSION: 05/03/2025 HISTORY OF PRESENT ILLNESS: This is a 40-year-old 6, para 5-0-1-5, with known missed at 9 weeks gestation, who presents to ER complaining of passing tissue and bleeding. The patient subsequently underwent a pelvic ultrasound and the transvaginal ultrasound shows no remaining intrauterine contents consistent with a complete . However, due to the continued discomfort, cramping, and bleeding, the patient will be observed for overnight for any excessive bleeding and replace blood as needed. We will also maintain her on uterotonics. ALLERGIES: NO KNOWN DRUG ALLERGIES. MEDICATIONS: 1. Metformin 750 mg p.o. at bedtime. 2. Rybelsus 3 mg p.o. daily. 3. Jardiance 10 mg p.o. daily. PAST MEDICAL HISTORY: Class B diabetes mellitus, cervical dysplasia, lumbosacral back pain, carpal tunnel syndrome, and migraine headaches. SOCIAL HISTORY: She denies any alcohol, drug use, or smoking. FAMILY HISTORY: Diabetes. OB HISTORY: Four previous full-term normal vaginal deliveries and one previous delivery. PAST SURGICAL HISTORY: delivery and LEEP cone biopsy of the cervix. PHYSICAL EXAMINATION: VITAL SIGNS: Blood pressure is 127/82, heart rate 88, respirations 18, temperature is 98.6. HEENT: Oropharynx and sclerae clear. LUNGS: Clear to auscultation bilaterally. HEART: Regular rate and rhythm. ABDOMEN: Nontender. EXTREMITIES: Nontender. SKIN: No gross rashes or lesions. NEUROLOGIC: No focal deficit. ASSESSMENT: Complete with vaginal bleeding. PLAN: IV fluids. Administer uterotonics. Replace blood as needed. As there are no remaining products of conception in the uterine cavity per ultrasound, no D and C is needed at this time. I discussed with the patient the nature of her condition, the recommended treatment plan, all questions answered. DT: 22:11:03 TT: 22:31:00 Ref: [id number] - TID: [id number]
[2025-05-03 22:33] VITALS: BP 140/90; PULSE 74; RESP 17; TEMP 37.3; O2SAT 100
[2025-05-03 23:29] VITALS: BP 120/77; PULSE 63; RESP 14; TEMP 36.5; O2SAT 98
[2025-05-04] VITALS (11 sets, daily range): BP systolic 96–162; BP diastolic 60–92; PULSE 54–89; RESP 16–18; TEMP 36.1–36.4; O2SAT 67–98; BMI 35.8
[2025-05-04] MEDS: OXYTOCIN in NS 20 units 20 UNIT/1,000 ML BAG 125 UNIT IV ×3 (00:52→23:12)
[2025-05-04] MEDS: METHYLERGONOVINE 0.2 MG TABLET PO ×4 (00:55→22:43)
[2025-05-04] MEDS: TRANEXAMIC ACID 1,000 MG IVPB 1,000 MG/100 ML BAG 200 MG IV (01:16)
--- NOTE | 2025-05-04 01:42 | PC.NURSE ---
DR. FAITH WAS CALLED FOR A PHONE ORDER FOR AN ANTIBODY SCREEN. PER VIANNEY TO NOT TRANSFUSE PT AND HE ONLY WANTS THE PRBC STAND UP JUST INCASE PT NEEDS IT
[2025-05-04] MEDS: KETOROLAC INJ 30 MG/ML VIAL IVP ×2 (01:45→13:19)
[2025-05-04 01:51] LABS: Basophils # (Auto) 0.0 Thou/mm3 (0.0-0.2); Basophils % (Auto) 0 % (0-2.5); Eosinophils # (Auto) 0.1 Thou/mm3 (0.0-0.5); Eosinophils % (Auto) 1 % (0-10); Hematocrit 44.7 % (36.0-46.0); Hemoglobin 14.6 g/dL (12.0-16.0); Immature Granulocytes Auto 0.03 Thou/mm3 (0.00-0.00); Lymphocytes # (Auto) 4.0 Thou/mm3 (1.0-4.8); Lymphocytes % (Auto) 43 % (10-50); Mean Corpuscular HGB Conc 32.7 g/dl (31.0-37.0); Mean Corpuscular Hemoglobin 27.7 pg (25.0-35.0); Mean Corpuscular Volume 85 fL (80-100); Monocytes # (Auto) 0.4 Thou/mm3 (0.0-0.8); Monocytes % (Auto) 4 % (0-12); Neutrophils # (Auto) 4.7 Thou/mm3 (1.8-7.7); Neutrophils % (Auto) 51 % (37-80); Nucleated Red Blood Cell # 0.00 Thou/mm3 (0.00-0.00); Nucleated Red Blood Cell % 0 /100 WBC (0); Platelet Count 197 Thou/mm3 (140-440); RDW Standard Deviation 39.9 fL (36.4-46.3); Red Blood Count 5.27 Miln/mm3 (4.00-5.20); White Blood Count 9.1 Thou/mm3 (3.6-11.0)
[2025-05-04] MEDS: ONDANSETRON INJ 2 MG/ML INJ 2 ML 4 MG IVP ×2 (02:09→11:27)
[2025-05-04] MEDS: MORPHINE SULF INJ 4 MG/ML VIAL IVP ×2 (02:33→06:54)
[2025-05-04] MEDS: cefTRIAXone 2 GM in SODIUM CHLORIDE 0.9% (Popper) 50 ML IV (06:22)
[2025-05-04 06:25] LABS: Basophils # (Auto) 0.0 Thou/mm3 (0.0-0.2); Basophils % (Auto) 0 % (0-2.5); Eosinophils # (Auto) 0.0 Thou/mm3 (0.0-0.5); Eosinophils % (Auto) 0 % (0-10); Hematocrit 45.2 % (36.0-46.0); Hemoglobin 14.8 g/dL (12.0-16.0); Immature Granulocytes Auto 0.04 Thou/mm3 (0.00-0.00); Lymphocytes # (Auto) 1.8 Thou/mm3 (1.0-4.8); Lymphocytes % (Auto) 17 % (10-50); Mean Corpuscular HGB Conc 32.7 g/dl (31.0-37.0); Mean Corpuscular Hemoglobin 27.8 pg (25.0-35.0); Mean Corpuscular Volume 85 fL (80-100); Monocytes # (Auto) 0.3 Thou/mm3 (0.0-0.8); Monocytes % (Auto) 3 % (0-12); Neutrophils # (Auto) 8.8 Thou/mm3 (1.8-7.7); Neutrophils % (Auto) 80 % (37-80); Nucleated Red Blood Cell # 0.00 Thou/mm3 (0.00-0.00); Nucleated Red Blood Cell % 0 /100 WBC (0); Platelet Count 193 Thou/mm3 (140-440); RDW Standard Deviation 40.0 fL (36.4-46.3); Red Blood Count 5.32 Miln/mm3 (4.00-5.20); White Blood Count 11.1 Thou/mm3 (3.6-11.0)
[2025-05-04] MEDS: INSULIN LISPRO (AdmeLOG) 1 UNIT/0.01 ML UNIT SC ×3 (07:52→17:23)
--- NOTE | 2025-05-04 08:25 | ESPR_ITS ---
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 She was observed throughout the night on Methergine and TXA as well as receiving Rocephin for a presumptive UTI. Her hemoglobin went from 15.8 to 14 0.7 to 14.8. She has remained hemodynamically stable with no episodes of hypotension or tachycardia. She denies any dizziness or lightheadedness. She denies any chest pain palpitation shortness of breath or lower extremity pain. She is tolerating a regular diet she denies any nausea or vomiting. She is voiding and ambulating and passing flatus. Due to hypertension after receiving uterotonic's she was given lisinopril and her pressure is normal. 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 - PN: Obj Data Labs 05/04/25 05:10 05/03/25 19:32 Labs: Laboratory Results - last 24 hr 05/03/25 05/03/25 05/04/25 19:32 19:45 01:30 WBC 9.9 9.1 RBC 5.60 H 5.27 H Hgb 15.7 14.6 Hct 46.5 H 44.7 MCV 83 85 MCH 28.0 27.7 MCHC 33.8 32.7 RDW Std Deviation 38.9 39.9 Plt Count 218 197 Neut % (Auto) 57 51 Lymph % (Auto) 38 43 [place] % (Auto) 4 4 Eos % (Auto) 1 1 Baso % (Auto) 0 0 Neut # (Auto) 5.6 4.7 Lymph # (Auto) 3.7 4.0 [place] # (Auto) 0.4 0.4 Eos # (Auto) 0.1 0.1 Baso # (Auto) 0.0 0.0 Immature Gran # (Auto) 0.02 H 0.03 H Absolute Nucleated RBC 0.00 0.00 Immature Gran % 0 0 Nucleated RBC % 0 0 Sodium 138 Potassium 3.8 Chloride 105 Carbon Dioxide 22.8 Anion Gap 10 BUN 10 Creatinine 0.9 Estim Creat Clear Calc 77.6 eGFR > 60 BUN/Creatinine Ratio 11 L Glucose 305 H Calculated Osmolality 285 Calcium 10.2 Corrected Calcium 10.2 H Total Bilirubin 0.8 AST 20 ALT 25 Alkaline Phosphatase 97 Total Protein 6.9 Albumin 4.8 Globulin 2.1 L Albumin/Globulin Ratio 2.3 H Beta HCG, Quant 1820 Ur Collection Type Voided Urine Color Brown A Urine Clarity Turbid A Urine pH 6.0 Ur Specific [place] 1.043 H Urine Protein 1+ A Urine Glucose (UA) 4+ A Urine Ketones 1+ A Urine Blood 3+ A Urine Nitrite Negative Urine Bilirubin Negative Urine Urobilinogen (Auto) 2.0 Ur Leukocyte Esterase Positive Urine RBC 4513 H Urine WBC 48 H Ur Squamous Epith Cells 2 Urine Bacteria None Blood Type O Negative Antibody Screen POSITIVE Antibody Identification Anti-D from RhoGam Crossmatch See Detail Blood Bank Wristband ID Yes 05/04/25 05:10 WBC 11.1 H RBC 5.32 H Hgb 14.8 Hct 45.2 MCV 85 MCH 27.8 MCHC 32.7 RDW Std Deviation 40.0 Plt Count 193 Neut % (Auto) 80 Lymph % (Auto) 17 [place] % (Auto) 3 Eos % (Auto) 0 Baso % (Auto) 0 Neut # (Auto) 8.8 H Lymph # (Auto) 1.8 [place] # (Auto) 0.3 Eos # (Auto) 0.0 Baso # (Auto) 0.0 Immature Gran # (Auto) 0.04 H Absolute Nucleated RBC 0.00 Immature Gran % 0 Nucleated RBC % 0 Sodium Potassium Chloride Carbon Dioxide Anion Gap BUN Creatinine Estim Creat Clear Calc eGFR BUN/Creatinine Ratio Glucose Calculated Osmolality Calcium Corrected Calcium Total Bilirubin AST ALT Alkaline Phosphatase Total Protein Albumin Globulin Albumin/Globulin Ratio Beta HCG, Quant Ur Collection Type Urine Color Urine Clarity Urine pH Ur Specific [place] Urine Protein Urine Glucose (UA) Urine Ketones Urine Blood Urine Nitrite Urine Bilirubin Urine Urobilinogen (Auto) Ur Leukocyte Esterase Urine RBC Urine WBC Ur Squamous Epith Cells Urine Bacteria Blood Type Antibody Screen Antibody Identification Crossmatch Blood Bank Wristband ID Impressions Impression: Complete with vaginal bleeding without anemia and hemodynamically stable with current medical treatment. No evidence of retained products of conception on pelvic ultrasound therefore no need for dilation and curettage Discharge home continue Methergine and TXA, take lisinopril for elevated blood pressures and continue antibiotic therapy for urinary tract infection. She already has a prescription for hydrocodone Rh negative: She received RhoGAM during her ER visit on April 30. Discharge instructions given Follow-up in the office in 1 week Patient was instructed to return to the emergency room with dizziness lightheadedness heavy severe persistent bleeding or unbearable pelvic pain. 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
--- NOTE | 2025-05-04 08:33 | ESDS_ITS ---
Planned Discharge Date 05/04/25 DS: Providers Provider Date of admission: 05/03/25 23:52 Primary care physician: Everett Candelaria PA-C Admitting Provider: Raul Troy MD Attending Provider on Admission: Raul Troy MD Attending Provider on DC: Raul Troy MD Discharging Provider: Raul Troy MD DS: Diagnosis Discharge Diagnosis (1) Urinary tract infection: Status: Acute (2) Complete with delayed or excessive hemorrhage: Status: Acute Problem List Completed Was Problem List Reviewed/Reconciled?: Yes Hospital Course Hospital Course Hospital course: 40-year-old seen in the office yesterday and found to have a 9-week intrauterine with no cardiac activity. She was scheduled for a suction dilatation and curettage next week but presented to the emergency room yesterday complaining of vaginal bleeding and cramping and passing tissue. A repeat transvaginal sonogram showed no intrauterine and no retained products of conception. The patient was admitted for control of her bleeding with the administration of uterotonic's and TXA as well as antibiotics for presumptive urinary tract infection. The patient is Rh- and she received RhoGAM during her prior ER visit on April 30, 2025. After being observed overnight her hemoglobin went from 15.8-14 0.7-14.8. She remained hemodynamically stable throughout her entire hospitalization. Uterotonics cause elevation of her blood pressure and she required lisinopril to lower blood pressure. Time Spent with Patient Time attestation: Total time spent providing and/or coordinating discharge services: Time spent: Greater than 30 minutes Exam - BU[employer]ING [employer]MER [employer]IC Vital Signs Temp Pulse Resp BP Pulse Ox O2 Del Method 97.0 F 66 16 106/70 97 Room Air 05/04/25 04:00 05/04/25 06:44 05/04/25 04:00 05/04/25 06:44 05/04/25 04:00 05/04/25 04:00 Discharge Plan Plan Patient Disposition: HOME (Self Care) Patient condition on transfer: Stable Prescriptions/Referrals Prescriptions/Med Rec: New lisinopril 10 mg tablet 10 mg PO QDAY Qty: 30 0RF cefuroxime axetil 500 mg tablet 500 mg PO BID Qty: 10 0RF methylergonovine 0.2 mg tablet 0.2 mg PO TID 2 Days Qty: 6 0RF tranexamic acid 650 mg tablet 1,300 mg PO TID Qty: 30 0RF Continued Vitamin 27 mg iron- 800 mcg Tablet 1 tab PO QDAY Referrals: Everett Candelaria PA-C [Primary Care Provider, Emergency Medicine] Patient/Caregiver Discharge Instructions Discharge Activity: activity as tolerated Other Discharge Activity Instructions:: Follow up office 1 week. Print Language: [place] Rican Stand Alone Forms: Yaneth Award Info., Patient Portal Info Letter, Work/Release Restrictions Discharge Order Discharge Orders: Discharge (Routine); Ordered 05/04/25 Ordered By: Raul Troy (1) Urinary tract infection Qualifiers: Urinary tract infection type: acute cystitis
--- NOTE | 2025-05-04 12:13 | PC.NURSE ---
Pt stated she feels dizzy, weak and nauseated. MD notified and ordered CBC stat, D/C on hold at this time.
[2025-05-04 14:47] LABS: Basophils # (Auto) 0.0 Thou/mm3 (0.0-0.2); Basophils % (Auto) 0 % (0-2.5); Eosinophils # (Auto) 0.1 Thou/mm3 (0.0-0.5); Eosinophils % (Auto) 1 % (0-10); Hematocrit 46.4 % (36.0-46.0); Hemoglobin 15.2 g/dL (12.0-16.0); Immature Granulocytes Auto 0.03 Thou/mm3 (0.00-0.00); Lymphocytes # (Auto) 2.1 Thou/mm3 (1.0-4.8); Lymphocytes % (Auto) 22 % (10-50); Mean Corpuscular HGB Conc 32.8 g/dl (31.0-37.0); Mean Corpuscular Hemoglobin 27.9 pg (25.0-35.0); Mean Corpuscular Volume 85 fL (80-100); Monocytes # (Auto) 0.3 Thou/mm3 (0.0-0.8); Monocytes % (Auto) 3 % (0-12); Neutrophils # (Auto) 7.2 Thou/mm3 (1.8-7.7); Neutrophils % (Auto) 74 % (37-80); Nucleated Red Blood Cell # 0.00 Thou/mm3 (0.00-0.00); Nucleated Red Blood Cell % 0 /100 WBC (0); Platelet Count 211 Thou/mm3 (140-440); RDW Standard Deviation 40.5 fL (36.4-46.3); Red Blood Count 5.45 Miln/mm3 (4.00-5.20); White Blood Count 9.7 Thou/mm3 (3.6-11.0)
[2025-05-05] VITALS: BP 104/59; PULSE 65; RESP 16; TEMP 36.8; O2SAT 95
[2025-05-05 04:00] VITALS: BP 102/61; PULSE 70; RESP 16; TEMP 37.1; O2SAT 98
[2025-05-05] MEDS: KETOROLAC INJ 30 MG/ML VIAL IVP (04:44)
[2025-05-05 06:09] VITALS: BP 102/61; PULSE 70
[2025-05-05] MEDS: METHYLERGONOVINE 0.2 MG TABLET PO (06:09)
[2025-05-05] MEDS: INSULIN LISPRO (AdmeLOG) 1 UNIT/0.01 ML UNIT SC (07:42)
[2025-05-05 08:00] VITALS: BP 107/70; PULSE 63; RESP 18; TEMP 36.6; O2SAT 94
--- NOTE | 2025-05-05 08:14 | PD.LDPPPRG ---
Subjective Subjective Interval history: Patient could not go home yesterday as planned due to significant nausea preventing her from tolerating much needed po meds as an outpatient critical to her recovery including TXA, Methergine and Cefuroxime as well as pain medication for the menstrual cramping. She denies anymore nausea. Patient denies any significant vaginal bleeding. She reports cramping but can cope with pain medication. She denies any dizziness or lightheadedness. She is voiding and ambulating and tolerating a regular diet. Exam Vital Signs Temp Pulse Resp BP Pulse Ox O2 Del Method 98.8 F 70 16 102/61 98 Room Air 05/05/25 04:00 05/05/25 06:09 05/05/25 04:00 05/05/25 06:09 05/05/25 04:00 05/05/25 04:00 Routine Respiratory Exam Comments: Clear to auscultation bilaterally Routine Cardiovascular Exam Comments: Regular rate and rhythm Routine Abdominal Exam Comments: Nontender nondistended Routine Extremities Exam Comments: No edema nontender Objective Labs 05/04/25 13:16 05/03/25 19:32 Labs: Laboratory Results - last 24 hr 05/04/25 13:16 WBC 9.7 RBC 5.45 H Hgb 15.2 Hct 46.4 H MCV 85 MCH 27.9 MCHC 32.8 RDW Std Deviation 40.5 Plt Count 211 Neut % (Auto) 74 Lymph % (Auto) 22 [place] % (Auto) 3 Eos % (Auto) 1 Baso % (Auto) 0 Neut # (Auto) 7.2 Lymph # (Auto) 2.1 [place] # (Auto) 0.3 Eos # (Auto) 0.1 Baso # (Auto) 0.0 Immature Gran # (Auto) 0.03 H Absolute Nucleated RBC 0.00 Immature Gran % 0 Nucleated RBC % 0 Impressions Impression: Complete with excessive vaginal bleeding Bleeding stopped with uterotonic's and TXA Urinary tract infection Discharge home with continued uterotonic's for 24 hours as well as antibiotics Follow-up in the office in 1 week Discharge instructions given Assessment & Plan Problem List (1) Urinary tract infection: Status: Acute (2) Complete with delayed or excessive hemorrhage: Status: Acute Time Spent With Patient Time: Total time spent is greater than 50% in coordination of care (as documented) at patient's floor/unit and/or counseling patient:
[2025-05-05] MEDS: cefTRIAXone 2 GM in SODIUM CHLORIDE 0.9% (Popper) 50 ML IV (08:30)
[2025-05-05] MEDS: DAPAGLIFLOZIN PROPANEDIOL 5 MG TABLET 10 MG PO (08:30)
[2025-05-05 08:34] VITALS: BP 107/70; PULSE 65
[2025-05-05 10:55] VITALS: BP 114/69; PULSE 74; RESP 16; TEMP 36.3; O2SAT 100
== END 2025-05-05 11:11 | disposition home or self-care (01) | DRG 564 ==
LOC: SERX 22:20 → SERHOLD 05-04 00:20 → S3NX 05-04 06:07 → SERHOLD 05-06 05:38
PROVIDERS: Nurse Practitioner Family; Admitting Provider Specialist; Emergency Provider Emergency Medicine; PCP Physician Assistant; Visit Provider Specialist
DX: O03.6 Delayed or excessive hemorrhage following complete or unspecified spontaneous abortion (principal); N30.00 Acute cystitis without hematuria; O26.891 Other specified pregnancy related conditions, first trimester; Z67.41 Type O blood, Rh negative; Z3A.11 11 weeks gestation of pregnancy
CPT/HCPCS: 36415; 76830; 80053; 81001; 84702; 85025; 86850; 86870; 86900; 86901; 86920; 87502; 87634; 96374; 99283; G0378; J0696; J1815; J1885; J2270; J2405; J2590; J3490; J7050; J8499; A9270

== ENCOUNTER → 2025-05-28 | Outpatient (CLI) | payer MEDICAID, SELFPAY | END | disposition home or self-care (01) | LOC: SRTX 06:36 | PROVIDERS: PCP Physician Assistant; Referring Provider Psychiatry & Neurology Neurology; Visit Provider Psychiatry & Neurology Neurology | DX: R42 Dizziness and giddiness (principal) | CPT/HCPCS: 95816 ==